=== PATIENT | male | born 1945 | race Two or more races ===

== ENCOUNTER 2024-07-02 03:52 | Emergency (ER) | payer OTHER, SELFPAY ==
[2024-07-02] VITALS (9 sets, daily range): BP systolic 144–157; BP diastolic 71–90; PULSE 68–88; RESP 16–18; TEMP 36.6–36.9; O2SAT 94–97; BMI 36.8
--- NOTE | 2024-07-02 04:13 | PC.NURSE ---
pt bib [facility] from home due to back pain, pt has not been able to move for the past three days, was d/c from [facility] days ago. pt has a drain to left side of abd with sutures in place, pt has visible hernia above umbilicus.
[2024-07-02 05:28] LABS: Basophils % (Auto) 0 % (0-2.5); Eosinophils # (Auto) 0.1 Thou/mm3 (0.0-0.5); Eosinophils % (Auto) 1 % (0-10); Hemoglobin 12.7 g/dL (13.5-16.0); Immature Granulocytes % (Auto) 5 % (0-0); Immature Granulocytes Auto 0.35 Thou/mm3 (0.00-0.00); Lymphocytes % (Auto) 12 % (10-50); Mean Corpuscular HGB Conc 35.3 g/dl (31.0-37.0); Mean Corpuscular Hemoglobin 31.4 pg (25.0-35.0); Mean Corpuscular Volume 89 fL (80-100); Monocytes # (Auto) 0.5 Thou/mm3 (0.0-0.8); Monocytes % (Auto) 6 % (0-12); Neutrophils # (Auto) 5.9 Thou/mm3 (1.8-7.7); Neutrophils % (Auto) 76 % (37-80); Nucleated Red Blood Cell % 0 /100 WBC (0); Platelet Count 172 Thou/mm3 (140-440); RDW Standard Deviation 41.4 fL (35.1-43.9); Red Blood Count 4.05 Miln/mm3 (4.50-5.90); White Blood Count 7.8 Thou/mm3 (3.8-10.6)
[2024-07-02 05:44] LABS: Collection Type, Urine Clean Catch
[2024-07-02 05:54] LABS: Alanine Aminotransferase 31 U/L (10-49); Albumin, Serum 2.9 gm/dL (3.4-4.8); Albumin/Globulin Ratio 1.6 (1.2-2.2); Alkaline Phosphatase 132 U/L (46-116); Anion Gap 9 (7-16); Aspartate Amino Transferase 40 U/L (0-34); BUN/Creatinine Ratio 15 Ratio (12-20); Bilirubin,Total 0.5 mg/dL (0.3-1.2); Blood Urea Nitrogen 9 mg/dL (9-23); Calcium 7.3 mg/dL (8.3-10.6); Calcium (Corrected) 8.2 mg/dL (8.5-10.1); Carbon Dioxide 23.4 mMol/L (20.0-31.0); Chloride 108 mMol/L (98-107); Creatinine (Component) 0.6 mg/dL (0.6-1.3); Globulin 1.8 gm/dL (2.3-3.5); Glucose 120 mg/dL (74-106); Lipase 98 U/L (12-53); Osmolality,Calculated 279 (275-295); Potassium 3.3 mMol/L (3.4-5.1); Sodium 140 mMol/L (136-145); Total Protein 4.7 gm/dL (5.7-8.2); eGFR > 60 See Note
[2024-07-02 05:55] LABS: Bilirubin,Urine Negative (Negative); Blood,Urine Negative (Negative); Clarity,Urine Clear (Clear/Hazy); Color,Urine Yellow (Lt Yel-Yel); Glucose, Urine Negative (Negative); Ketones,Urine Negative (Negative); Leukocyte Esterase,Urine Negative (Negative); Nitrite,Urine Negative (Negative); PH,Urine 6.5 (5.0-7.0); Protein,Urine Trace (Neg - Trace); RBC,Urine 4 /hpf (0-3); Specific Gravity,Urine 1.019 (1.001-1.035); Squamous Epithelial Cell,Urine < 1 /hpf (0-5); WBC,Urine 2 /hpf (0-5)
--- NOTE | 2024-07-02 06:01 | PD.EDRME ---
Rapid Medical Screening Exam RME Arrival date/time: 07/02/24 03:52 Chief Complaint: Back Pain/Injury Vital signs: Vital Signs Temperature 98.1 F 07/02/24 04:12 Pulse Rate 79 07/02/24 04:12 Respiratory Rate 16 07/02/24 04:12 Blood Pressure 147/83 H 07/02/24 04:12 Pulse Oximetry (%) 94 L 07/02/24 04:12 Oxygen Delivery Method Room Air 07/02/24 04:12 Vital signs reviewed by provider: Yes RME Narrative: 78-year-old male presenting with right upper quadrant pain. Patient has a history of acute cholecystitis with gallbladder removal and drainage placed in the past. Patient states that he has not been feeling well for the last few days. Nursing orders were placed by the nurse prior to my RME note. Patient will be evaluated by the next ED provider for follow-up disposition for labs and radiographs if needed.
--- NOTE | 2024-07-02 06:16 | XR_ITS ---
Examination: CT abdomen with intravenous contrast CT pelvis with intravenous contrast 2-D coronal reconstructions 2-D sagittal reconstructions Date and time of exam:July 02, 2024 0700 hrs. Indications: Onset epigastric pain today. CTDI: vol (mGy) 20.8 DLP: (mGycm) 1259 Technique: Multiple axial sections of the abdomen and pelvis have been obtained. 64 slice high-resolution scanner used. 3 mm axial sections have been obtained, post intravenous injection 60 cc Isovue-370 2-D sagittal, coronal reconstructions obtained. Low dose protocols were performed. One or more of the following dose reduction techniques were used; automated exposure control, adjustment of the mA and/or KV according to patient size, use of iterative reconstruction technique. Findings: Moderate enlargement cardiac contour with moderate vascular congestion Small bilateral pleural effusions Cirrhosis, liver irregular in contour with fatty infiltration Drainage tube is noted in the gallbladder fossa in satisfactory position No pancreatic mass Spleen is not enlarged 6 cm upper pole right renal cyst Smaller left renal cyst No renal calculi or hydronephrosis 23 mm umbilical hernia containing incarcerated fat Trace ascites Normal appendix Significantly air distended right colon, with focal thickening of the colon at the hepatic flexure, coronal image 76 Significant prostatomegaly transverse dimension 7.5 cm, prostate is protruding into the base of the bladder. No renal calculi Fat-containing inguinal hernias Impression: Suspicious for mild heart failure, recommend AP chest follow-up Cirrhosis Mild ascites Drainage catheter noted in the gallbladder with satisfactory position 23 mm umbilical hernia containing incarcerated fat Significantly air distended right colon with focal thickening of the colon at the hepatic flexure, coronal image 76, recommend colonoscopy follow-up to exclude early malignant neoplasm of the colon at the hepatic flexure Significant prostatomegaly
--- NOTE | 2024-07-02 06:31 | PD.EDADULT ---
ED General RME/HPI General Chief complaint: Back Pain/Injury Stated complaint: BACK PAIN Time Seen by Provider: 07/02/24 06:23 Arrival date/time: 07/02/24 03:52 RME / HPI RME / HPI narrative: 78-year-old male presenting with right upper quadrant pain. Patient has a history of acute cholecystitis with gallbladder removal and drainage placed in the past. Patient states that he has not been feeling well for the last few days. Nursing orders were placed by the nurse prior to my RME note. Patient will be evaluated by the next ED provider for follow-up disposition for labs and radiographs if needed. DR. GRACE PALMER ED EVALUATION: 78 year old male presents to the Emergency Department BIBA with complaint of that he is not feeling well that he has right upper quadrant pain; he had a drain in the right upper quadrant placed after cholecystectomy at [facility]. His drain is draining bilious fluid, about 200 mg in bag. Related Data Allergies Allergy/AdvReac Type Severity Reaction Status Date / Time No Known Allergies Allergy Verified 07/02/24 06:22 Review of Systems Review of Systems Systems Reviewed: All systems reviewed, normal except as documented Past Medical History Past Medical History CARDIAC: Positive Hypertension GASTROINTESTINAL: Positive Gastrointestinal Disorders, Gall Bladder Disease and Hiatal Hernia GENITOURINARY: Positive Benign Prostatic Hyperplasia ENDOCRINE: Positive Diabetes Mellitus Type 2 OTHER HISTORY: Positive Cancer Surgical History SURGICAL: Positive Abdominal Surgery Social History SMOKING STATUS: Former smoker SUBSTANCE USE: does not use ALCOHOL: Never ED Exam Narrative Physical exam: GENERAL APPEARANCE: alert and oriented x 4, well-developed, well-nourished, no acute distress VITALS: All vitals were reviewed and the pulse ox is 95% on room air, which is normal according to my interpretation. HEENT: Normocephalic, atraumatic; pupils equal, round, reactive to light; EOMI; mucous membranes pink, moist; oropharynx clear NECK: Supple LUNGS: CTABL; no wheezes, no rales, no rhonchi HEART: Regular rate, regular rhythm; normal S1, S2; no murmurs ABDOMEN: there is biliary drain in the right upper quadrant that is draining bilious fluid, about 200 mg; non distended; normal BS; soft, no tenderness, no guarding, no rebound; no masses, no organomegaly, no hernia BACK: no CVA tenderness EXTREMITIES: atraumatic; no edema NEUROLOGIC: awake; alert and oriented x4; cranial nerves II-XII grossly intact; no focal sensory or motor deficits PSYCHIATRIC: appropriate mood and affect SKIN: warm, dry, normal color; no rashes Course Quality Measures none Orders Category Date Time Status CT Screening NOW Care 07/02/24 06:16 Active Referral - Leaf Size Picker Stat Cons 07/02/24 09:[address] abdomen pelvis w con Stat Exams 07/02/24 06:16 Completed CBC Stat Lab 07/02/24 04:30 Completed CMP [Comprehensive Metabolic Panel] Stat Lab 07/02/24 04:30 Completed Lactate (Lactic Acid) Routine Lab 07/02/24 05:33 Completed Lipase Stat Lab 07/02/24 04:30 Completed UA [Urinalysis] Stat Lab 07/02/24 05:28 Completed Reevaluation(s) Reevaluation #1: This patient is choosing to leave against medical advice. I have personally explained to the patient that choosing to do so may result in permanent bodily harm or . I discussed a great length that without further evaluation and monitoring there may be unforeseen circumstances and deterioration causing permanent bodily harm or as a result of their choice. The patient is alert, oriented and competent at this time. The patient states that they are aware of the serious risks as explained, but they continue to wish to leave against medical advice. In light of their decision to leave AMA, follow-up has been arranged and they are aware of the importance of following up as instructed. They have been advised that they should return to the ED immediately if they change their mind at any time, or if their condition begins to change or worsen. Time: 14:43 Vital Signs Vital signs: Vital Signs Temperature 98.1 F 07/02/24 04:12 Pulse Rate 79 07/02/24 04:12 Respiratory Rate 16 07/02/24 04:12 Blood Pressure 147/83 H 07/02/24 04:12 Pulse Oximetry (%) 94 L 07/02/24 04:12 Oxygen Delivery Method Room Air 07/02/24 04:12 [facility] Patient data External records reviewed:: None Clinical information provided by:: patient Social determinants that could affect healthcare access:: none Patient has the following chronic illnesses:: History of acute cholecystitis with gallbladder removal and drainage placed. Other PMHx includes hypertension and diabetes. How is presenting disease/condition affected by chronic disease/condition?: exacerbated by Evaluation data The following diagnostics were reviewed and interpreted by me:: lab results and radiology exam(s) Lab and/or radiology exams considered but not ordered:: none Interpretation Summary: Procedure(s): CT abdomen pelvis w con Accession Number(s): [id number] cc: Steve Servin MD; ELIAS VALLECILLO; Sulema Charles MD~ Examination: CT abdomen with intravenous contrast CT pelvis with intravenous contrast 2-D coronal reconstructions 2-D sagittal reconstructions Date and time of exam:July 02, 2024 0700 hrs. Indications: Onset epigastric pain today. CTDI: vol (mGy) 20.8 DLP: (mGycm) 1259 Technique: Multiple axial sections of the abdomen and pelvis have been obtained. 64 slice high-resolution scanner used. 3 mm axial sections have been obtained, post intravenous injection 60 cc Isovue-370 2-D sagittal, coronal reconstructions obtained. Low dose protocols were performed. One or more of the following dose reduction techniques were used; automated exposure control, adjustment of the mA and/or KV according to patient size, use of iterative reconstruction technique. Findings: Moderate enlargement cardiac contour with moderate vascular congestion Small bilateral pleural effusions Cirrhosis, liver irregular in contour with fatty infiltration Drainage tube is noted in the gallbladder fossa in satisfactory position No pancreatic mass Spleen is not enlarged 6 cm upper pole right renal cyst Smaller left renal cyst No renal calculi or hydronephrosis 23 mm umbilical hernia containing incarcerated fat Trace ascites Normal appendix Significantly air distended right colon, with focal thickening of the colon at the hepatic flexure, coronal image 76 Significant prostatomegaly transverse dimension 7.5 cm, prostate is protruding into the base of the bladder. No renal calculi Fat-containing inguinal hernias Impression: Suspicious for mild heart failure, recommend AP chest follow-up Cirrhosis Mild ascites Drainage catheter noted in the gallbladder with satisfactory position 23 mm umbilical hernia containing incarcerated fat Significantly air distended right colon with focal thickening of the colon at the hepatic flexure, coronal image 76, recommend colonoscopy follow-up to exclude early malignant neoplasm of the colon at the hepatic flexure Significant prostatomegaly Dictated By: Steve Servin MD Medications Medications considered but not ordered:: none Medication administrations:: see above if any Consultations Consultation(s) initiated? (list below): Yes Consultation #1 (Physician, Specialty, Details): Discussed test HPI, PMHx, lab, radiology results and/or management with Dr. Sanchez. Dr. Sanchez recommends transferring the patient to [facility]. Time: 09:12 Diagnosis Differential Diagnosis ED Complaint MDM: post-cholecystectomy syndrome (PCS), bile leak, infection, sepsis Most likely diagnosis given after review of the tests above:: See below. Admission Indicated Admission indicated?: not indicated Explain why admission is indicated or not indicated:: Needed to transfer but patient is choosing to leave AMA. Admission Request Was there a request for admission?: No Disposition Plan Disposition Plan: other (specify) (AMA) Medical Decision Making MDM Narrative MDM Narrative: IEulalia am scribing for and in the presence of Dr. Charles. Differential Diagnosis Differential Diagnosis: post-cholecystectomy syndrome (PCS), bile leak, infection, sepsis Lab Data 07/02/24 04:30 07/02/24 04:30 Labs: Lab Results 07/02/24 07/02/24 07/02/24 Range/Units 04:30 05:28 05:33 WBC 7.8 (3.8-10.6) Thou/mm3 RBC 4.05 L (4.50-5.90) Miln/mm3 Hgb 12.7 L (13.5-16.0) g/dL Hct 36.0 L (41.0-53.0) % MCV 89 (80-100) fL MCH 31.4 (25.0-35.0) pg MCHC 35.3 (31.0-37.0) g/dl RDW Std Deviation 41.4 (35.1-43.9) fL Plt Count 172 (140-440) Thou/mm3 Neut % (Auto) 76 (37-80) % Lymph % (Auto) 12 (10-50) % [facility] % (Auto) 6 (0-12) % Eos % (Auto) 1 (0-10) % Baso % (Auto) 0 (0-2.5) % Neut # (Auto) 5.9 (1.8-7.7) Thou/mm3 Lymph # (Auto) 1.0 (1.0-4.8) Thou/mm3 [facility] # (Auto) 0.5 (0.0-0.8) Thou/mm3 Eos # (Auto) 0.1 (0.0-0.5) Thou/mm3 Baso # (Auto) 0.0 (0.0-0.2) Thou/mm3 Immature Gran # (Auto) 0.35 H (0.00-0.00) Thou/mm3 Absolute Nucleated RBC 0.00 (0.00-0.00) Thou/mm3 Immature Gran % 5 H (0-0) % Nucleated RBC % 0 (0) /100 WBC Sodium 140 (136-145) mMol/L Potassium 3.3 L (3.4-5.1) mMol/L Chloride 108 H (98-107) mMol/L Carbon Dioxide 23.4 (20.0-31.0) mMol/L Anion Gap 9 (7-16) BUN 9 (9-23) mg/dL Creatinine 0.6 (0.6-1.3) mg/dL Estim Creat Clear Calc 120.0 (>60) mL/min eGFR > 60 (60 - ) See Note BUN/Creatinine Ratio 15 (12-20) Ratio Glucose 120 H (74-106) mg/dL Calculated Osmolality 279 (275-295) Lactic Acid Cancelled 1.0 Calcium 7.3 L (8.3-10.6) mg/dL Corrected Calcium 8.2 L (8.5-10.1) mg/dL Total Bilirubin 0.5 (0.3-1.2) mg/dL AST 40 H (0-34) U/L ALT 31 (10-49) U/L Alkaline Phosphatase 132 H (46-116) U/L Total Protein 4.7 L (5.7-8.2) gm/dL Albumin 2.9 L (3.4-4.8) gm/dL Globulin 1.8 L (2.3-3.5) gm/dL Albumin/Globulin Ratio 1.6 (1.2-2.2) Lipase 98 H (12-53) U/L Ur Collection Type Clean Catch Urine Color Yellow (Lt Yel-Yel) Urine Clarity Clear (Clear/Hazy) Urine pH 6.5 (5.0-7.0) Ur Specific [place] 1.019 (1.001-1.035) Urine Protein Trace (Neg - Trace) Urine Glucose (UA) Negative (Negative) Urine Ketones Negative (Negative) Urine Blood Negative (Negative) Urine Nitrite Negative (Negative) Urine Bilirubin Negative (Negative) Urine Urobilinogen (Auto) 4.0 (0.0-1.0) mg/dL Ur Leukocyte Esterase Negative (Negative) Urine RBC 4 H (0-3) /hpf Urine WBC 2 (0-5) /hpf Ur Squamous Epith Cells < 1 (0-5) /hpf Urine Bacteria None (None) Discharge Plan Prescriptions/Referrals Referrals: Elias Vallecillo [Primary Care Provider] - In 1 week Patient/Caregiver Discharge Instructions Print Language: Hungarian
--- NOTE | 2024-07-02 07:46 | PC.NURSE ---
PT RESTING IN BED IN NO APPARENT DISTRESS. PT STATES THAT HE HAS NO PAIN WHEN HE IS LAYING STILL BUT WHEN HE MOVES AROUND IS WHEN HE FEELS PAIN. ASKED PT IF HE WANTED PAIN MEDS AND PT STATES HE IS OKAY AT THIS TIME. ALL LABS AND CT'S ARE DONE AND RESULTED. PT AWAITING REVIEW BY ER DOCTOR. CALL LIGHT WITHIN REACH.
--- NOTE | 2024-07-02 09:20 | PC.CM ---
Addendum entered by Seda Geronimo RN 07/02/24 13:38: I spoke to Dr. Charles and she states patient again declined transfer and he wants to go home. I called and spoke to Vianey at [facility] and I canceled transfer request. Addendum entered by Seda Geronimo RN 07/02/24 11:36: 1110 Mihir, charge nurse, and I met with patient to discuss transfer. Mihir spoke to patient in [place] he he stated he did not want to go to [facility] and he wanted to stay here. We spoke to patient for over 5 min trying to find out what patient wanted to do. Mihir explained why he needed to be transferred. Patient states he wants to think about it for a while, and he will get back to us. I updated Dr. Charles and [facility] transfer nurse Vianey. 1045 I called and spoke to Dr. Charles and she states patient stated he did not want to go to [facility] and he wanted to stay here. She states she spoke to him and explained that we needed to transfer him to [facility] where he previously had surgery for continuum of care. 1030 Vianey with [facility] center called me back and stated they have been reviewing patient's previous visit and patient declined to come back to them for follow up tests and procedures. Vianey asked me if patient was willing to go to [facility]. Addendum entered by Seda Geronimo RN 07/02/24 09:39: 0930 I called Vianey at [facility] and I initiated transfer. I let her know I faxed over paperwork. Original Note: 912 I received a referral to transfer patient to [facility] for right colon distension. As per nurse patient was treated at [facility] and Dr. Sanchez states patient should go back for continued care. I will contact [facility] transfer center and fax over information.
--- NOTE | 2024-07-02 11:20 | PC.NURSE ---
ATTEMPTED TO SPEAK WITH PT REGARDING TRANSFER. PT STATING THAT HE WANTS TO GO HOME. INFORMED PT VIA FINANCIAL ASSOCIATE THAT HE NEEDS TO BE TRANSFERRED FOR HIGHER LEVEL OF CARE AND IF HE LEAVES HE HAS TO SIGN OUT AMA WITH ALL RISKS UP TO AND INCLUDING EXPLAINED. PT STATES THAT HE WAS NOT ALLOWED TO EAT LAST TIME HE WAS AT [facility] AND WE EXPLAINED THAT HE HAD SURGERY THAT TIME AND THAT WAS PROBABLE WHY. PT STILL UNSURE IF HE WANTS TO BE TRANSFERRED. PT ASKED FOR TIME TO THINK ABOUT IT.
--- NOTE | 2024-07-02 13:39 | PC.NURSE ---
pt wants to leave AMA. will have pt call ride and get certified safety specialist for AMA paperwork
--- NOTE | 2024-07-02 15:55 | PC.NURSE ---
PT'S FRIEND AT BEDSIDE. ATTEMPTED AGAIN TO GET PT TO STAY TO BE TRANSFERRED. PT STILL ADAMANT THAT HE WANTS TO LEAVE HOME. AGAIN ADVISED PT OF ALL RISKS UP TO AND INCLUDING VIA BLENDER. PT STILL WANTS TO LEAVE. PT STATED THAT HE WILL FOLLOW UP WITH PMD OR GO TO ER IF NEEDED. PT SIGNED AMA FORM AT THIS TIME.
== END 2024-07-02 16:00 | disposition left against medical advice (07) ==
PROVIDERS: Emergency Medicine; Emergency Provider Emergency Medicine; PCP Family Medicine
DX: K42.0 Umbilical hernia with obstruction, without gangrene (principal); K74.60 Unspecified cirrhosis of liver; R18.8 Other ascites; N40.0 Benign prostatic hyperplasia without lower urinary tract symptoms; K63.89 Other specified diseases of intestine; I10 Essential (primary) hypertension; E11.9 Type 2 diabetes mellitus without complications; Z87.891 Personal history of nicotine dependence; Z90.49 Acquired absence of other specified parts of digestive tract; Z53.29 Procedure and treatment not carried out because of patient's decision for other reasons
CPT/HCPCS: 36415; 74177; 80053; 81001; 83605; 83690; 85025; 99285; A4649; Q9967